=== PATIENT | female | born 1990 | race Caucasian/White ===

== ENCOUNTER 2025-08-05 17:08 | Emergency (ER) | payer SELFPAY ==
[2025-08-05 17:10] VITALS: BP 151/93
--- NOTE | 2025-08-05 17:26 | ED.GENMED ---
History of Present Illness
General
Chief Complaint: Cold/Flu/URI Symptoms
Time Seen by Provider: 08/05/25 17:24
History of Present Illness
History of Present Illness:
FOCUSED PAST MEDICAL HISTORY
- No significant past medical history
REVIEW OF OLD RECORDS
- No old records available for review in [facility]
Note:
CHIEF COMPLAINT(S)
- Congestion
- Heartburn
- Pain behind the left eye
- Difficulty breathing
HISTORY OF PRESENT ILLNESS
The patient is a 34-year-old female who presents with congestion, heartburn, pain behind the left eye, and difficulty breathing. The patient reports that these symptoms began after starting a new job. The first symptom was a headache behind the left
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 The patient describes the job as stressful and notes that other coworkers have experienced similar symptoms, including
headaches and nausea.
The chest discomfort and difficulty breathing were noted upon the patients return from a giving vacation. The patient mentioned having performed COVID tests, both of which returned negative. She reports breathing difficulties, especially when
attempting deep breaths, without definite associated fever, though she recalls a feeling of feverishness with chills on a day she noted a potential fever of 99�F.
Further details reveal there is mold presence in the patients new apartment, though no direct allergy to mold is confirmed. The patient did not report any recent transatlantic flights or long trips considered to significantly increase the risk of
blood clots, except for a four-hour drive to [place], [place].
ADDITIONAL HISTORY OBTAINED FROM SOURCES OTHER THAN THE PATIENT
The patients new job environment includes exposure to oil and particulates, with multiple coworkers reporting similar health issues.
SOCIAL DETERMINANTS AFFECTING HEALTH
The patient identifies a stressful work environment with potential exposure to particulates. There is also potential mold exposure in the patients apartment.
REVIEW OF SYSTEMS
- General: Reports feeling feverish with chills.
- Respiratory: Reports difficulty breathing, particularly on deep inhalation.
- Musculoskeletal: Left eye pain with associated headache experienced initially.
PHYSICAL EXAM
General: Alert, no acute distress. Appears comfortable
Skin: Warm, dry.
Head: Normocephalic, atraumatic.
Neck: Supple, trachea midline.
Eye, Ears, Nose, Mouth, and Throat: Oral mucosa moist. Periorbital exam is unremarkable. Poor dentition of the right upper maxillary region but no tenderness to percussion
Cardiovascular: Normal peripheral perfusion, no edema.
Respiratory: Respirations are non-labored; lungs sound clear on auscultation. No significant chest wall tenderness.
Gastrointestinal: Abdomen nondistended.
Back: Normal range of motion, normal alignment.
Musculoskeletal: Normal ROM, normal strength.
Neurological: Alert and oriented to person, place, time, and situation, no focal neurological deficit observed.
Psychiatric: Cooperative, appropriate mood & affect.
PROBLEM LIST
- Acute problems:
- Congestion
- Heartburn
- Difficulty breathing
- Pain behind the left eye
- Environmental exposure at work
PLAN
The plan includes conducting blood work, including cardiac panels and a D-Dimer test, to screen for any underlying cardiac issues or blood clots. An X-ray is also planned to further evaluate the patients respiratory status. If pain persists,
medication adjustments with an 800 mg dose of ibuprofen can be administered for relief. Further testing may proceed depending on blood work and X-ray results.
DIFFERENTIAL DIAGNOSIS
The Differential Diagnosis includes, in no particular order and is not limited to:
1. Upper Respiratory Tract Infection
2. Sinusitis
3. Allergic Rhinitis
4. Gastroesophageal Reflux Disease (GERD)
5. Tension Headache
6. Environmental Allergies
7. Chemical Exposure Reaction
8. Asthma
9. Atypical Pneumonia
10. Anxiety-related Hyperventilation
RADIOLOGY
- Chest x-ray clear
EKG
- Sinus 75, no acute ST abnormality, no old to compare
LABS
- White count, troponin, chemistries unremarkable
SUMMARY OF ENCOUNTER
The patient, a 34-year-old female, presented with symptoms of congestion, heartburn, pain behind the left eye, and difficulty breathing. 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 Previous COVID tests were
negative, and she reported mold presence in her apartment. Initial workup in the emergency department included a screening for blood clots and cardiac issues, which showed no abnormalities. The patient was administered ibuprofen (Motrin) for
headache relief. Lung auscultation revealed no abnormalities, but a chest x-ray was ordered to further investigate respiratory concerns.
PLAN
Proceed with chest x-ray to evaluate respiratory status. If x-ray results are normal, patient will be discharged. Continue ibuprofen (Motrin) for headache relief over the next several days.
INDEPENDENT REVIEW OF LABS AND INTERPRETATION OF TESTS
My independent review of the cardiac panel indicates no abnormalities.
My independent review of blood clot screenings indicates no blood clot presence.
PATIENT EDUCATION AND COUNSELING
The patient was advised to continue taking ibuprofen (Motrin) for headache relief. She was informed about the plan to discharge her pending normal x-ray results.
MEDICATION RECONCILIATION
Ibuprofen (Motrin) administered in the emergency department for headache relief. Advised to continue use over the next several days.
MEDICAL DECISION MAKING
- Number and Complexity of Problems Addressed:
Chronic conditions affecting care include: Environmental exposure at work, congestion, heartburn, difficulty breathing, pain behind the left eye.
- Data:
Category 1:
My independent interpretation of chest x-ray is pending as it was ordered to assess respiratory complaints. No abnormalities anticipated.
- Risk:
Consideration of Admission/Observation: Escalation of care including admission/observation was considered given the complexity and risk of the patients presenting complaint. However, ultimately I feel the patient is safe for outpatient management
with close follow-up. Reasoning: Work-up reassuring, does not reveal any acute life/organ-threatening processes, patients symptoms well controlled upon reevaluation, reexamination is reassuring, vitals are stable, patient agreeable with discharge,
reliable for follow-up.
DIAGNOSIS
1. Chest pain
UPDATE
- Feels improved after Motrin
- D-dimer no evidence for PE
- Troponin EKG unremarkable
- Clear chest x-ray
Phy Exam
Physical Exam
Physical Exam:
See HPI
Course
Orders/Labs/Results
Orders:
Orders
08/05/25 17:16
EKG [Electrocardiogram (*1)] Urgent
Reason for Study: Chest Pain
EKG- Treatment ONCE
08/05/25 17:37
Ibuprofen [Motrin] 600 mg PO NOW STA
CR Chest - 2 Views Urgent
Comment:
Reason For Exam: chest pain
08/05/25 18:01
Basic Metabolic Panel Urgent
Complete Blood Count/With Diff Urgent
D-Dimer Urgent
Troponin I Urgent
Influenza A+B Rapid Molecular Urgent
ZANA Source: Nasal Swab
Specimen Description:
Abnormal Lab Results
08/05/25
18:01
RBC 4.10 L 10^6/uL
(4.20-5.40)
Hgb 11.8 L g/dL
(12.0-16.0)
Hct 34.3 L %
(37.0-47.0)
Sodium 134 L mmol/L
(135-145)
Creatinine 0.5 L mg/dL
(0.6-1.0)
08/05/25 18:01
08/05/25 18:01
Vital Signs
Initial and Last Documented VS:
Initial Vital Signs
Temp Pulse Resp BP Pulse Ox
36.9 C 91 20 151/93 99
08/05/25 17:10 08/05/25 17:10 08/05/25 17:10 08/05/25 17:10 08/05/25 17:10
Last Documented Vital Signs
Temp Pulse Resp BP Pulse Ox
36.9 C 78 18 116/82 100
08/05/25 17:10 08/05/25 19:41 08/05/25 19:41 08/05/25 19:41 08/05/25 19:42
*Pulse Oximetry
SaO2: 99
Oxygen Mode of Delivery: Room air
Patient hypoxic: no
*Critical Care Note
Total Time (30-74mins, 75-104mins- exclusive of procedures): Not Applicable
ED Attending Note
-
Portions of this chart may have been created with voice recognition software.� Occasional wrong word or��sound alike� substitutions may have occurred due to the inherent limitations of voice recognition software.
Discharge Plan
Departure
Patient Disposition: Home (Routine Discharge)
Date of Disposition: 08/05/25
Time of Disposition: 19:17
Patient with high blood pressure during this ER visit?: Yes
Discharge Problem:
Chest pain
Instructions: Chest pain (DC), BLOOD PRESSURE
Referrals:
NONE,* [Family Provider, Internal Medicine]
Activity Restrictions/Additional Instructions:
Basic labs are unremarkable however your hemoglobin is slightly low at 11.8. D-dimer blood clot screening test was negative. Troponin (heart attack test) is negative. EKG is normal. I see no abnormality on the chest x-ray. I recommend 3-4
[id number] ibuprofen (Motrin) every 8 hours with food for a few days. Return here if worse.
Interventions
Interventions:
*Risk Screen - Suicide Last Done: 08/05/25 17:10
*General Assessment Last Done: 08/05/25 17:10
*Neglect/Abuse Screening Last Done: 08/05/25 17:10
*ED COVID-19 Vaccine History Last Done: 08/05/25 17:10
*ED Influenza Vaccine History Last Done: 08/05/25 17:10
[facility] Fall Risk Assessment Tool Last Done: 08/05/25 18:13
*Nursing Disposition Last Done: 08/05/25 19:41
ED- Pulmonary Assessment Last Done: 08/05/25 19:42
Discharge Date and Time
Discharge Date/Time: 08/05/25 19:43
Print Language: SPANISH
[2025-08-05 18:13] VITALS: BP 122/84; BMI 22.5
[2025-08-05] MEDS: MOTRIN 600 MG PO (18:17)
[2025-08-05 18:19] LABS: Hematocrit 34.3 % (37.0-47.0); Hemoglobin 11.8 g/dL (12.0-16.0); Mean Corp Hgb Conc. 34.4 g/dL (33.0-37.0); Mean Corpuscular Volume 83.7 fL (81.0-99.0); Nucleated Red Blood Cells % 0 %; Platelet Count 238 10^3/uL (130-400); Red Cell Dist. Width 12.1 % (11.5-14.5)
[2025-08-05 18:35] LABS: D-Dimer < 0.27 ug/mlFEU (0.00-0.50)
[2025-08-05 18:43] LABS: Blood Urea Nitrogen 12 mg/dl (7-17); Calcium 9.1 mg/dl (8.4-10.2); Carbon Dioxide 28 mmol/L (22-30); Chloride 102 mmol/L (98-107); Estimated Creatinine Clearance 104 ml/min; Glucose 99 mg/dl (70-99); Potassium 4.0 mmol/L (3.5-5.1); Sodium 134 mmol/L (135-145); eGFR > 60.00
[2025-08-05 18:55] LABS: Troponin I < 0.012 ng/ml
[2025-08-05 19:41] VITALS: BP 116/82
== END 2025-08-05 19:43 | disposition home or self-care (01) ==
LOC: EMR 17:08
PROVIDERS: EMERGENCY PHYSICIAN Emergency Medicine
DX: R07.9 Chest pain, unspecified (principal); Z77.120 Contact with and (suspected) exposure to mold (toxic); Z56.6 Other physical and mental strain related to work
CPT/HCPCS: 99285; 71046; 80048; 84484; 85025; 85379; 87502; 93005